=== PATIENT | male | born 1965 | race Caucasian/White ===

== ENCOUNTER 2016-07-01 08:12 | Emergency (ER) | payer OTHER ==
[2016-07-01 09:38] LABS: ABSOLUTE EOSINOPHILS # (AUTO) 0.1 10^3/uL (0.0-0.6); ABSOLUTE LYMPHOCYTES (AUTO) 1.4 10^3/uL (0.5-4.7); ABSOLUTE MONOCYTES (AUTO) 0.7 10^3/uL (0.1-1.4); BASOPHILS % (AUTO) 0.5 % (0-2); EOSINOPHILS % (AUTO) 2.1 % (0-6); HEMATOCRIT 47.4 % (37.9-51.0); HEMOGLOBIN 15.9 g/dL (13.5-17.0); HGB HCT DIFFERENCE 0.3; LYMPHOCYTES % (AUTO) 22.2 % (13-45); MEAN CORPUSCULAR HEMOGLOBIN 29.2 pg (27.0-33.4); MEAN CORPUSCULAR HGB CONC 33.5 g/dL (32.0-36.0); MEAN CORPUSCULAR VOLUME 87 fl (80-97); RED BLOOD COUNT 5.44 10^6/uL (4.35-5.55); RED CELL DISTRIBUTION WIDTH 14.3 % (11.5-14.0); SEGMENTED NEUTROPHILS % (AUTO) 64.2 % (42-78); WHITE BLOOD COUNT 6.2 10^3/uL (4.0-10.5)
[2016-07-01 09:39] LABS: PARTIAL THROMBOPLASTIN TIME 35.3 SEC (23.5-35.8)
[2016-07-01 09:46] LABS: ALANINE AMINOTRANSFERASE 73 U/L (21-72); ALKALINE PHOSPHATASE 75 U/L (38-126); ANION GAP 12 (5-19); ASPARTATE AMINO TRANSFERASE 35 U/L (17-59); BILIRUBIN,TOTAL 0.6 mg/dL (0.2-1.3); BLOOD UREA NITROGEN 17 mg/dL (7-20); CALCIUM 9.1 mg/dL (8.4-10.2); CARBON DIOXIDE 27 mmol/L (22-30); CHLORIDE 105 mmol/L (98-107); CREATININE RESULT 0.89 mg/dL (0.52-1.25); GLUCOSE 106 mg/dL (75-110); POTASSIUM 4.4 mmol/L (3.6-5.0); SODIUM 144.4 mmol/L (137-145); TOTAL PROTEIN 7.4 g/dL (6.3-8.2)
--- NOTE | 2016-07-01 13:47 | XCELERA REPORT ---
[address] [address] Lower Extremity Venous Evaluation Name: CARLY GALE Age: 51 yrs Gender: Male : 1965 Patient Status: Emergency Patient Location: ER Study Date: 07/01/2016 10:53 AM Procedure: Color flow and duplex imaging of the veins of the left lower extremity as well as the right Common Femoral vein. Reason For Study: L calf pain, hx DVT Ordering Physician: MARBIN DUMONT Performed By: Elmer Washington Right Sided Venous Evaluation The right common femoral vein is fully compressible. Spontaneous and phasic flow is present in the right common femoral vein. Left Sided Venous Evaluation Significant for a 1 cm mass in the superficial muscular compartment of the upper, lateral calf. non vascular with a rim of small vessels. Normal vessel filling wall to wall, compression and augmentation as well as Colour flow down to the infrageniculate veins. Critical Findings Discussed with Marbin Dumont at about 1320 hours. Interpretation Summary No duplex evidence of DVT or obstruction in the left lower extremity nor in the right Common Femoral vein. Unusual mass in the muscular compartment. Further evaluation, follow up recommended. : MARBIN DUMONT > Gordy Yuan
--- NOTE | 2016-07-01 14:17 | ER Document Report ---
ED Extremity Problem, Lower - General Chief Complaint: Leg Pain Stated Complaint: LEG PAIN Mode of Arrival: Ambulatory Information source: Patient Notes: 51 y/o M presents to ED c/o intermittent pain to left calf over the last 3 days. Pt reports non-provoked, non-radiating, sharp/cramping type pain to mid lateral aspect left calf area. 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 2 weeks ago had coumadin held for 3 days for colonoscopy although took lovenox for those 3 days. Patient also reports is visiting local area from [place] where he is followed by his primary care provider for the Coumadin therapy. [facility] he drove from [place] here last week and is planning to drive to [place] tomorrow with his daughter. Denies chest pain, shortness of breath, swelling/redness/warmth to the left calf, numbness, tingling, or color changes. TRAVEL OUTSIDE OF THE [place] IN LAST 30 DAYS: No - HPI Patient complains to provider of: Pain Location: Leg Onset/Duration: Intermittent, Persistent Quality of pain: Achy, Cramping, Sharp Severity: Mild Pain Level: 2 Recent injury: No Exacerbated by: Nothing Relieved by: Nothing - Related Data Allergies/Adverse Reactions: No Known Allergies Allergy (Unverified 07/01/16 08:20) Past Medical History - General Information source: Patient - Social History Smoking Status: Never Smoker Frequency of alcohol use: None Drug Abuse: None Lives with: Family Family History: Reviewed & Not Pertinent - Past Medical History Cardiac Medical History: Reports: Hx DVT, Hx Pulmonary Embolism Surgical Hx: Negative - Immunizations Hx Diphtheria, Pertussis, Tetanus Vaccination: Yes Review of Systems - Review of Systems Constitutional: No symptoms reported EENT: No symptoms reported Cardiovascular: No symptoms reported Respiratory: No symptoms reported Gastrointestinal: No symptoms reported Genitourinary: No symptoms reported Male Genitourinary: No symptoms reported Musculoskeletal: See HPI Skin: No symptoms reported Hematologic/Lymphatic: No symptoms reported Neurological/Psychological: No symptoms reported -: Yes All other systems reviewed and negative Physical Exam - Vital signs Vitals: Temp Pulse Resp BP Pulse Ox 98.1 F 73 20 147/78 H 94 07/01/16 08:20 07/01/16 08:20 07/01/16 08:20 07/01/16 08:20 07/01/16 08:20 Interpretation: Normal - General General appearance: Appears well, Alert - HEENT Head: Normocephalic, Atraumatic Eyes: Normal Pupils: PERRL - Respiratory Respiratory status: No respiratory distress Chest status: Nontender Breath sounds: Normal Chest palpation: Normal - Cardiovascular Rhythm: Regular Heart sounds: Normal auscultation Murmur: No Pulses: Normal: Radial, Posterior tibial, Dorsalis pedis Normal capillary refill: Yes - Abdominal Inspection: Normal Distension: No distension Bowel sounds: Normal Tenderness: Nontender Organomegaly: No organomegaly - Back Back: Normal, Nontender - Extremities General upper extremity: Normal inspection, Nontender, Normal color, Normal ROM , Normal strength, Normal temperature. No: Tender, Edema General lower extremity: Normal inspection, Nontender, Normal color, Normal ROM , Normal strength, Normal temperature, Normal weight bearing. No: Tender, Edema , Parish's sign Calf: Tender - Mild tenderness with palpation to pinpoint area of left lateral mid calf. No swelling, bruising, erythema, or warmth. Neurovascular and motor function intact.. No: Normal, Nontender, Abrasion, Deformity, Ecchymosis, Instability, Laceration, Unable to bear weight, Other - Neurological Neuro grossly intact: Yes Cognition: Normal Orientation: AAOx4 Ayden Coma Scale Eye Opening: Spontaneous Askov Coma Scale Verbal: Oriented Askov Coma Scale Motor: Obeys Commands Askov Coma Scale Total: 15 Speech: Normal Motor strength normal: LUE, RUE, LLE, RLE Sensory: Normal - Psychological Associated symptoms: Normal affect, Normal mood - Skin Skin Temperature: Warm Skin Moisture: Dry Skin Color: Normal Course - Re-evaluation Re-evalutation: 07/01/16 14:15 Patient hemodynamically stable, in no distress. Labs unremarkable. 1 cm diameter nonvascular mass which appears to be in the musculature of the left calf on ultrasound per Dr. Yuan. Patient presentation, lab, and ultrasound findings discussed with patient's primary care provider in [facility] Dr. Carr who recommends patient continue on current Coumadin regimen and follow -up in his clinic in 2 weeks after he returns from his trip to [place]. Patient appears stable for discharge with no suggestion or emergent infectious, inflammatory, or vascular etiology to symptoms. Home care, follow-up, ED return precautions discussed with patient who verbalized understanding and agrees with plan. - Vital Signs Vital signs: Temp Pulse Resp BP Pulse Ox 98 F 77 16 153/85 H 97 07/01/16 12:20 07/01/16 14:31 07/01/16 14:31 07/01/16 14:31 07/01/16 14:31 - Laboratory Result Diagrams: 07/01/16 09:15 07/01/16 09:15 Laboratory results interpreted by me: 07/01/16 07/01/16 07/01/16 09:15 09:15 09:15 RDW 14.3 H PT 23.0 H ALT 73 H - Diagnostic Test Radiology reviewed: Image reviewed, Reports reviewed Discharge - Discharge Clinical Impression: Left leg pain Condition: Stable Disposition: HOME, SELF-CARE Instructions: Leg Pain Nonspecific ([facility]), Growth or Mass, Pending Workup ([facility]) Additional Instructions: Continue taking your previously prescribed medication including Coumadin as directed by your primary care provider. Follow-up with your primary care provider tomorrow as discussed. Return to the Emergency Department for any worsening symptoms or concerns. Forms: Elevated Blood Pressure
[2016-07-01 14:32] VITALS: BP 153/85
== END 2016-07-01 14:31 | disposition home or self-care (01) ==
LOC: ER 08:12
DX: M79.605 Pain in left leg (principal)
CPT/HCPCS: 36415; 80053; 85025; 85610; 85730; 93971; 99284